=== PATIENT | female | born 1980 | race Caucasian/White ===

== ENCOUNTER 2017-03-29 14:18 | Emergency (ER) | payer OTHER ==
[2017-03-29] MEDS ORDERED: IV NORMAL SALINE 1,000ML 500 ML IV SCH (14:59)
--- NOTE | 2017-03-29 14:59 | PHYS DOC ---
General Chief Complaint: chest pain Stated Complaint: chest pain Time Seen by MD: 14:56 Source: patient Exam Limitations: no limitations Problems: History of Present Illness Initial Comments Patient is a 36-year-old female who comes to the ED complaining of chest pain for the past 5 days. States that for the past 5 days she's had anterior chest wall discomfort which radiates down to her lower ribs. Symptoms are worse with deep breaths, coughs, and certain positions. She says she's been breathing more shallow than normal to avoid discomfort. No arm or neck symptoms no nausea vomiting no diaphoresis or lightheadedness. Patient denies any trauma or coughing no difficulty breathing. Patient is a former smoker. Symptoms are described as mild to moderate [id number]-jpo-[id number] medications are not helping. Emergency department vital signs are normal. Timing/Duration: constant (5 days) Severity: moderate Modifying Factors: worse with movement, improves with rest Associated Symptoms: chest pain Allergies: Coded Allergies: No Known Drug Allergies (Unverified , 03/29/17) Past Medical History Medical History: other (fibromyalgia, crohns, migraine) Surgical History: noncontributory Social History Smoker: quit greater than 1 year Alcohol: none Drugs: none Review of Systems Constitutional: denies chills, denies fever Respiratory: denies cough, denies shortness of breath Cardiovascular: see HPI, denies palpitations, denies syncope Gastrointestinal: denies diarrhea, denies nausea, denies vomiting Genitourinary: denies dysuria, denies frequency, denies hematuria Musculoskeletal: see HPI, denies back pain, denies neck pain Psychiatric/Neurological: denies headache, denies numbness, denies paresthesia Physical Exam General Appearance: WD/WN, no apparent distress Eyes: bilateral eye normal inspection, bilateral eye PERRL, bilateral eye EOMI Ear, Nose, Throat: hearing grossly normal, normal ENT inspection, normal pharynx Neck: non-tender, supple Respiratory: normal breath sounds, no respiratory distress, other (chief complaint symptoms are reproduced with palpation of the anterior chest wall.) Cardiovascular: normal peripheral pulses, regular rate, rhythm Gastrointestinal: non tender, soft Back: no CVA tenderness, no vertebral tenderness Extremities: non-tender, normal inspection, no pedal edema Neurologic/Psychiatric: integration director II-XII nml as tested, no motor/sensory deficits, alert, oriented x 3 Skin: normal color, warm/dry Orders, Labs, Meds EKG: Normal sinus rhythm 74 bpm no STEMI. Interpreted by Dr. Flores. PATIENT: DENISHA SCHWARTZ ACCOUNT: [id number] : 1980 LOCATION: ER AGE: 36 SEX: F EXAM STATUS: REG ER ORD. PHYSICIAN: AJIT FLORES DO REASON: cp PROCEDURE: PORTABLE CHEST 1V Portable chest, 03/29/2017: History: Chest pain The heart size and pulmonary vascularity are normal. The lungs are clear. There is no evidence of pleural fluid. IMPRESSION: No acute cardiopulmonary abnormality is detected. DICTATED AND SIGNED BY: EVELINA LOBO MD DATE: 03/29/17 1520 CC: NON,STAFF; AJIT FLORES DO ~ Reassuring workup in the ED. More specifically cardiac enzymes and d-dimer are negative. Given the duration of symptoms as well as the musculoskeletal nature of her symptoms I feel no further evaluation is indicated on an emergent basis. I discussed the treatment plan patient expressed agreement and understanding. Departure Time of Disposition: 16:52 Disposition: 01 HOME, SELF-CARE Diagnosis: costochondritis Condition: GOOD Patient Instructions: Costochondritis, [id number] Additional Instructions: Please review the patient education materials given to you by the nurses. Heating pad to affected area 15-20 minutes 4-6 times daily. Hwgn-mso-cyhhrtt ibuprofen for discomfort. Fnqz-spc-fzrwtab Pepcid while taking Naprosyn to protect gastric lining. Prescription: Naprosyn 500 mg quantity 30 take with food twice daily. Follow-up with your doctor in 10-14 days for recheck. Return to the ED with new or changing symptoms. AJIT FLORES DO Mar 29, 2017 14:59
[2017-03-29] MEDS ORDERED: SUMAtriptan. 6 MG/0.5 ML VIAL SQ ONE (15:00)
--- NOTE | 2017-03-29 15:12 | EKG ---
[address] [address] Test Date: 2017-03-29 Test Time: 14:42:50 Pat Name: DENISHA SCHWARTZ Department: Room: Gender: F Business Support Manager: PAC[place] : 1980 Requested By: AJIT BUSCH Order Number: [id number] Reading MD: Hector Rizzo Measurements Intervals Ross Rate: 74 P: -23 WA: 156 QRS: 54 QRSD: 88 T: 26 QT: 380 QTc: 422 Interpretive Statements SINUS RHYTHM Electronically Signed On 04-01-2017 7:53:38 CDT by Hector Rizzo
--- NOTE | 2017-03-29 15:23 | RAD ---
Portable chest, 03/29/2017: History: Chest pain The heart size and pulmonary vascularity are normal. The lungs are clear. There is no evidence of pleural fluid. IMPRESSION: No acute cardiopulmonary abnormality is detected.
[2017-03-29 15:37] LABS: BASO # 0.1 x10^3/uL (0.0-0.2); BASO % 1 % (0-3); EOS # 0.1 x10^3/uL (0.0-0.7); EOS % 2 % (0-3); HEMATOCRIT 39.8 % (36.0-47.0); HEMOGLOBIN 13.5 g/dL (12.0-15.5); LYMPH # 1.6 x10^3/uL (1.0-4.8); LYMPH % 22 % (24-48); MEAN CORPUSCULAR HEMOGLOBIN 31 pg (25-35); MEAN CORPUSCULAR HGB CONC 34 g/dL (31-37); MEAN CORPUSCULAR VOLUME 90 fL (79-100); MONO # 0.4 x10^3/uL (0.0-1.1); MONO % 6 % (0-9); NEUT # 5.2 x10^3uL (1.8-7.7); NEUT % 70 % (31-73); PLATELET COUNT 222 x10^3/uL (140-400); RED BLOOD COUNT 4.44 x10^6/uL (3.50-5.40); RED CELL DISTRIBUTION WIDTH 13.5 % (11.5-14.5); WHITE BLOOD COUNT 7.5 x10^3/uL (4.0-11.0)
[2017-03-29 15:53] LABS: ALBUMIN 3.8 g/dL (3.4-5.0); ALBUMIN/GLOBULIN RATIO 1.2 (1.0-1.7); CALCIUM 8.7 mg/dL (8.5-10.1); CREATININE 0.8 mg/dL (0.6-1.0); GFR 81.2; POTASSIUM 3.5 mmol/L (3.5-5.1); TOTAL BILIRUBIN 0.3 mg/dL (0.2-1.0); TOTAL PROTEIN 7.1 g/dL (6.4-8.2)
[2017-03-29] MEDS ORDERED: ASPIRIN 81 MG TAB.CHEW ONE (15:55)
[2017-03-29] MEDS ORDERED: ASPIRIN ENTERIC COATED 81 MG TABLET.DR. PO ONE ×2 (15:55→16:00)
[2017-03-29] MEDS ORDERED: KETOROLAC 30 MG/ML VIAL. IV ONE (16:00)
[2017-03-29 16:39] LABS: CLARITY,URINE HAZY; COLOR,URINE YELLOW; GLUCOSE,URINE NEG (NEG)
[2017-03-29 16:40] LABS: BILIRUBIN,URINE NEG (NEG); NITRITE,URINE NEG (NEG); UROBILINOGEN,URINE 0.2 mg/dL (0.2 mg/dL)
[2017-03-29 16:46] LABS: AMPHETAMINE/METHAMPHETAMINE NEG (NEG); BARBITURATES NEG (NEG); BENZODIAZEPINES NEG (NEG); CANNABINOIDS POS (NEG); COCAINE NEG (NEG); METHADONE NEG (NEG); OPIATES NEG (NEG); PHENCYCLIDINE NEG (NEG)
[2017-03-29 16:50] LABS: BACTERIA,URINE FEW /HPF (0-FEW); SQUAMOUS EPITHELIAL CELL,UR MANY /LPF
[2017-03-29 17:20] VITALS: BP 106/72
== END 2017-03-29 17:20 | disposition home or self-care (01) ==
LOC: ER 14:18
DX: M94.0 Chondrocostal junction syndrome [Tietze] (principal); M79.7 Fibromyalgia; K50.90 Crohn's disease, unspecified, without complications; G43.909 Migraine, unspecified, not intractable, without status migrainosus; Z87.891 Personal history of nicotine dependence
CPT/HCPCS: 36415; 71010; 80053; 80307; 81001; 81025; 82550; 83690; 84484; 85027; 85379; 93005; 96361; 96372; 96374; 99285; J1885; J3030; G0479; J7030